=== PATIENT | male | born 1995 | race Caucasian/White ===

== ENCOUNTER 2022-12-31 12:50 | Outpatient (AMB) | payer OTHER, SELFPAY ==
--- NOTE | 2022-12-31 13:03 | A.OFFVIS_ITS ---
Intake Vital Signs 12/31/22 13:05 Height 5 ft 10 in Weight 282 lb BMI 40.5 BP 188/102 H Blood Pressure Location Lt radial Position Sitting Respiration 14 Pulse 104 H Pulse Source Pulse Oximeter Pulse Oximetry (%) 96 Oxygen Delivery Method Room Air Intake Visit Reasons: back pain Allergies Macrolide Antibiotics Allergy (Severe, Verified 12/31/22 13:08) Anaphylaxis Medication List - Last Reconciled 12/31/22 by Annalisa Valera, TOÑA amlodipine 5 mg PO DAILY cyclobenzaprine 20 mg PO BID ibuprofen 800 mg PO BID oxycodone 5 mg PO BID PRN pregabalin 300 mg PO BID HPI back pain HPI Details 27-year-old male presenting today for an evaluation of back pain. In 2018, the patient states that he was walking upstairs when he turned and pivoted on one foot with immediate onset pain in the lower back radiating down to his legs. 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 He subsequently underwent a spinal cord detethering surgery along with S1 and S2 laminectomies in 2018 [address] Altaf Becker at [facility]. No particular intervention was undertaken for his spinal disc herniations related sciatica. Since the surgery, he reports unresolved pain in the lower back that radiates around the sides and then down to the bilateral lower extremities. His right leg is more bothersome than his left. He also has numbness and tingling in bilateral feet. He states that his pain is constantly present while driving, lying down, standing, or climbing stairs. It is especially worse with walking. He endorses leaning on his shopping cart when he goes grocery shopping. He can walk one block before his pain is worsened of for him to sit down. MRI in 2022 showed moderate to severe spinal stenosis at L4-5 secondary to a diffuse disc bulge and a congenitally narrow spinal canal as well as a diffuse disc bulge at L5-S1 with moderate spinal stenosis. He underwent a caudal epidural steroid injection at [facility] pain management earlier this year, that resulted in acute worsening of his neuropathic pain symptoms without any relief whatsoever. He is taking oxycodone and cyclobenzaprine. He states that he is unable to swim due to leg cramps and inability to move his legs in the water in recent months, where as he was previously an excellent swimmer. He has also had a few falls in recent months. He subjectively feels his legs have weakened although he denies any loss of bowel or bladder control. He states that he has intermittent bladder issues since his surgery in 2018 but no accidents. He is currently on leave. He works for [employer]. His insurance changed recently when his company was taken over by another firm. He has been working on losing weight for the past few years through diet control with good success. His maximum weight was 410 lb and he is 280 lb currently. [facility] Medical History (Updated 12/31/22 @ 13:46 by Dmitry Rodriguez MD) ADHD Chronic back pain HTN (hypertension) Review of Systems Const All systems reviewed & are unremarkable except as noted in HPI and below Physical Exam Vital Signs: Last Vital Signs Pulse 104 H 12/31/22 13:05 Resp 14 12/31/22 13:05 BP 188/102 H 12/31/22 13:05 Pulse Ox 96 12/31/22 13:05 Oxygen Delivery Method Room Air 12/31/22 13:05 BMI result Body Mass Index 40.5 General: Appears afebrile. Alert and oriented. Mood and affect appropriate. Follows and participates in conversation appropriately. Respiratory effort is unlabored. Able to transition from sit to stand unassisted. Ambulates with bilaterally normal heel strike and toe off. Results Reviewed Results Reviewed: MR LUMBAR SPINE. Assessment & Plan Assessment & Plan (1) Spinal stenosis, lumbar region with neurogenic claudication: Code(s): M48.062 - Spinal stenosis, lumbar region with neurogenic claudication Plan 1. Encouraged the patient to continue his weight loss at home. ? 2. A referral was provided to Dr. Mack for further evaluation and discussion of surgical decompression for spinal stenosis at L4-5 and L5-S1. I explained to him that the goal of the surgery would be to restore strength to his lower extremities and eliminate symptoms of neurogenic claudication. If he has residual neuropathic symptoms of lumbosacral radiculopathy following lumbar decompression, we can revisit spinal cord stimulation at that point. Patient expressed understanding. I also asked him to bring a disc with his MRI images to his neurosurgical appointment. Scribed for Dr. Rodriguez by John Awad, neuropsychology medical consultant, on 12/31/2022. I, Dr. Rodriguez, have personally reviewed and agree with the information entered by the alisia bains. Orders: Referrals Neurosurgery Referral M48.062 - Spinal stenosis, lumbar region with neurogenic claudication Coding Level of Care Code New Pt Level 4 (12852) Diagnoses Spinal stenosis, lumbar region with neurogenic claudication M48.062
[2022-12-31 13:05] VITALS: BP 188/102; PULSE 104; RESP 14; O2SAT 96; BMI 40.5
== END 2022-12-31 14:11 | disposition home or self-care (01) ==
PROVIDERS: PCP Family Medicine; Visit Provider Internal Medicine
DX: M48.062 Spinal stenosis, lumbar region with neurogenic claudication (principal)
CPT/HCPCS: 99204

== ENCOUNTER → 2022-12-31 12:50 | Outpatient (BNVA) | payer OTHER, SELFPAY | PROVIDERS: PCP Family Medicine; Visit Provider Internal Medicine ==

== ENCOUNTER 2023-01-23 09:24 | Outpatient (AMB) | payer OTHER, SELFPAY ==
--- NOTE | 2023-01-23 09:52 | A.SPINEOV_ITS ---
Intake Intake Visit Reasons: low back pain Intake Note: Mr. Nolan is here today c/o low back and leg pain. MRI done @ [facility]/brought disc. Recreation Program Specialist Required: No Allergies Macrolide Antibiotics Allergy (Severe, Verified 12/31/22 13:08) Anaphylaxis Assessment & Plan Assessment & Plan (1) Spinal stenosis, lumbar region with neurogenic claudication: Code(s): M48.062 - Spinal stenosis, lumbar region with neurogenic claudication Plan: Dear colleague, Thank you for referring Niraj to our office today. He is a pleasant 27-year-old male with a chief complaint of low back and leg pain. He reports that in 2018 he was walking upstairs, turned and pivoted on one foot, and had immediate onset of low back pain radiating down his legs. He reports a history of S1-S2 laminectomy and spinal cord detethering surgery. He additionally states that he has a congenitally narrowed spinal cord. He reports that his not feel that surgery is very beneficial, he continues to have unresolved low back pain that radiates down his bilateral extremities worse in his right leg than his left. He he states that he is predominantly pain symptoms in his right leg originating in his low back and radiating around his lateral thigh over the top of his knee terminating midway down his tibialis. He states that he has predominantly numbness and tingling symptoms in his left leg beginning in his low back radiating down his lateral thigh over the top of his left knee tip te rminating in his left foot near his toes. He states that standing up straight and walking for extended periods of time exacerbate his low back pain, and reports that sitting down , lying down, relieves his low back. He has tried physical therapy, home health care provider, cortisone injections, narcotic pain medications, muscle relaxers, and [id number] solutions without significant relief. PMH: High blood pressure Social hx: Patient does not smoke, disclosed no substance use. Medications: Cyclobenzaprine, Lyrica, amlodipine, ibuprofen, oxycodone. Allergies: NKDA Physical exam: 4/5 strength in bilateral lower extremities (pain limiting weakness). Sensation and light touch equal and intact in bilateral lower extremities. Reflexes intact in bilateral lower extremities. (-) Straight leg raise bilaterally. (-) Babinski. No clonus. Increased pain elicited to spine extension. No pain with spine flexion. Antalgic gait. Imaging review: MRI from 2018 and [address] Mack. It seems that the herniated disc at L4/5 has became significantly larger since 2018, causing severe impingement at L4/L5. L5/S1 herniation seems to remain relatively the same sizes 2018, in only shows [id number] protrusion. Impression: The patient is a 27-year-old male with a chief complaint of low back pain, right leg pain, and left leg numbness and tingling. His symptoms are in a classic L4/5 dermatomal distribution, originating in his low back wrapping around his lateral thigh crossing over his knee to the anterior tibialis with intermittent top of the foot involvement. He additionally has symptoms indicative of severe spinal stenosis. He reports that for the last few months he is essentially laid in bed because the pain is so bad that he cannot tolerate more than mild movement throughout the day. He is on medical leave from work. He has no relief of pain with muscle relaxers narcotic pain medications in timc-klz-[id number] pain solutions. He is had multiple other therapies for this issue including physical therapy home health care provider cortisone injections and previous spinal surgery (2018). At this time we believe he would most benefit from a L4/5 lumbar decompression with discectomy (bilateral approach). We additionally discussed some concern for the potential for calcification over the disc, therefore the patient will be sent for a CT scan of the lumbar spine. He is tentatively scheduled for surgery on March 07. Thank you for allowing us to care for your patient. The total time spent with this visit with this patient was[] minutes reviewing history, physical exam, [] imaging review, and implementation of treatment plan or further diagnostic testing Golden Mack MD,PhD [facility] Orders: Orders CT lumbar spine wo IV con Today M48.062 - Spinal stenosis, lumbar region with neurogenic claudication Coding Level of Care Code New Pt Level 5 (34045) Diagnoses Spinal stenosis, lumbar region with neurogenic claudication M48.062 Time Spent (min) 65
--- NOTE | 2023-01-23 11:25 | HO.SPINEOV ---
Intake Intake Visit Reasons: low back pain Allergies Macrolide Antibiotics Allergy (Severe, Verified 12/31/22 13:08) Anaphylaxis Assessment & Plan Assessment & Plan (1) Spinal stenosis, lumbar region with neurogenic claudication: Code(s): M48.062 - Spinal stenosis, lumbar region with neurogenic claudication Plan: Dear colleague, Thank you for referring Niraj to our office today. He is a pleasant 27-year-old male with a chief complaint of low back and leg pain. He reports that in 2018 he was walking upstairs, turned and pivoted on one foot, and had immediate onset of low back pain radiating down his legs. He reports a history of S1-S2 laminectomy and spinal cord detethering surgery. He additionally states that he has a congenitally narrowed spinal cord. He reports that his not feel that surgery is very beneficial, he continues to have unresolved low back pain that radiates down his bilateral extremities worse in his right leg than his left. He he states that he is predominantly pain symptoms in his right leg originating in his low back and radiating around his lateral thigh over the top of his knee terminating midway down his tibialis. He states that he has predominantly numbness and tingling symptoms in his left leg beginning in his low back radiating down his lateral thigh over the top of his left knee tip terminating in his left foot near his toes. He states that standing up straight and walking for extended periods of time exacerbate his low back pain, and reports that sitting down , lying down, relieves his low back. PMH: High blood pressure Social hx: Patient does not smoke, disclosed no substance use. Medications: Cyclobenzaprine, Lyrica, amlodipine, ibuprofen, oxycodone. Allergies: NKDA Physical exam: 4/5 strength in bilateral lower extremities (pain limiting weakness). Sensation and light touch equal and intact in bilateral lower extremities. Reflexes intact in bilateral lower extremites. (-) Straight leg raise bilaterally. (-) Babinski. No clonus. Increased pain elicited to spine extension. No pain with spine flexion. Antalgic gait. Imaging review: MRI from 2017 and [address] Mack. It seems that the herniated disc at L4/5 has became significantly larger since 2018, causing severe stenosis and severe nerve root impingement at L4/L5. L5/S1 herniation seems to remain relatively the same sizes 2018, in only shows [id number] protrusion. Impression: The patient is a 27-year-old male with a chief complaint of low back pain right leg pain, alongside left leg numbness and tingling. His symptoms are in a classic L4/5 dermatomal distribution, originating in his low back wrapping around his lateral thigh crossing over his knee to the anterior tibialis with intermittent top of the foot involvement. He additionally has symptoms indicative of severe spinal stenosis. He reports that for the last few months he is essentially laid in bed because the pain is so bad that he cannot tolerate movement throughout the day. He is on medical leave from work. He has no relief of pain with muscle relaxers narcotic pain medications in aynw-gcc-timyxzk pain solutions. He is had multiple other therapies for this issue including physical therapy managed care provider cortisone injections and previous spinal surgery. At this time we believe he would most benefit from a L4/5 lumbar decompression with diskectomy (bilateral approach). We additionally discussed some concern for the potential for calcification over the disc, therefore the patient will be sent for a CT scan of the lumbar spine. He is tentatively scheduled for surgery on March 07. Thank you for allowing us to care for your patient. The total time spent with this visit with this patient was 65 minutes reviewing history, physical exam, MRI imaging review, and implementation of treatment plan or further diagnostic testing Golden Mack MD,PhD [facility] Orders: Orders CT lumbar spine wo IV con Today M48.062 - Spinal stenosis, lumbar region with neurogenic claudication Coding Level of Care Code New Pt Level 5 (82834) Diagnoses Spinal stenosis, lumbar region with neurogenic claudication M48.062
== END 2023-01-23 10:55 | disposition home or self-care (01) ==
PROVIDERS: PCP Family Medicine; Referring Provider Internal Medicine; Visit Provider Physician Assistant
DX: M48.062 Spinal stenosis, lumbar region with neurogenic claudication (principal)
CPT/HCPCS: 99205

== ENCOUNTER → 2023-01-23 09:24 | Outpatient (BNVA) | payer OTHER, SELFPAY | PROVIDERS: PCP Family Medicine; Referring Provider Internal Medicine; Visit Provider Physician Assistant ==

== ENCOUNTER 2023-03-07 09:42 | Day surgery (SDC) | payer OTHER, SELFPAY ==
[2023-02-20 15:08] VITALS: BMI 54.5
--- NOTE | 2023-02-21 13:29 | HO.ANESPROP2 ---
Documented by User: Kiera Sánchez NP 03/04/23 14:00 HPI - Anesthesia Eval Consult details Narrative: 27yo M for Bilateral L4-5 Laminotomy/Discectomy, 03/07/23 PCP [facility] Active Problems Active Problems: All Active Problems (Updated 02/20/23 @ 15:05 by Isabella Burk RN) Spinal stenosis, lumbar region with neurogenic claudication (Acute) Past Medical History Medical History Mild heartburn Anxiety Bilateral leg numbness Loud snoring ADHD HTN (hypertension) Chronic back pain Surgical History Surgical History Hx of laminectomy History of tonsillectomy and adenoidectomy Social History Social History Household Members: Family Housing: House Are you a primary critical care technician to a significant other at home: No Do you presently have visiting nurse or other home services: No Patient Tobacco Use Status: Never used Tobacco Use of substances other than those prescribed or required for medical reasons: Yes Substance Use Type: Marijuana Substance Use Frequency: Daily Have you been hit, kicked, punched, or otherwise hurt by someone within the past year? If so, by whom?: No Are you DNR?: No Advance Directives: No Advance Directives Information Provided: Yes Advance Directives on File: No Nutrition Risks: No Nutritional Risk Poor oral hygiene: No Meds Allergies Allergy/AdvReac Type Severity Reaction Status Date / Time Macrolide Antibiotics Allergy Severe Anaphylaxis Verified 02/20/23 15:08 Home Medications Medication Instructions Recorded Confirmed Last Taken Type amlodipine 5 mg tablet 5 mg PO DAILY 12/31/22 03/07/23 02/28/23 History cyclobenzaprine 10 mg tablet 20 mg PO BID PRN Pain 12/31/22 02/20/23 03/05/23 History ibuprofen 800 mg tablet 800 mg PO BID PRN Pain 12/31/22 02/20/23 02/26/23 History oxycodone 5 mg capsule 5 mg PO BID PRN Pain 12/31/22 02/20/23 03/06/23 History pregabalin 300 mg capsule 300 mg PO BID 12/31/22 02/20/23 03/06/23 History Exam Exam Date and Time: February 21, 2023 1329 Height,Weight and Vital Signs: Height 5 ft 10 in Weight 172.365 kg Pertinent Lab Results Pertinent Lab Results: CBC from outside facility 02/15/23 WNL Narrative Narrative: EKG 02/2023 SR @ [address] depression (nondiagnostic for this age) Assessment and Plan Assessment Anesthesia Assessment: Chart Reviewed Documented by User: Dmitry Rodriguez MD 03/07/23 14:52 PMFSH Past Medical History Medical History Mild heartburn Anxiety Bilateral leg numbness Loud snoring ADHD HTN (hypertension) Chronic back pain Family History Family history of problems with anesthesia: No Surgical History Surgical History Hx of laminectomy History of tonsillectomy and adenoidectomy History of Problems with Anesthesia: No Social History Social History Household Members: Family Housing: House Are you a primary critical care technician to a significant other at home: No Do you presently have visiting nurse or other home services: No Patient Tobacco Use Status: Never used Tobacco Use of substances other than those prescribed or required for medical reasons: Yes Substance Use Type: Marijuana Substance Use Frequency: Daily Have you been hit, kicked, punched, or otherwise hurt by someone within the past year? If so, by whom?: No Are you DNR?: No Advance Directives: No Advance Directives Information Provided: Yes Advance Directives on File: No Nutrition Risks: No Nutritional Risk Poor oral hygiene: No Meds Allergies Allergy/AdvReac Type Severity Reaction Status Date / Time Macrolide Antibiotics Allergy Severe Anaphylaxis Verified 02/20/23 15:08 Home Medications Medication Instructions Recorded Confirmed Last Taken Type amlodipine 5 mg tablet 5 mg PO DAILY 12/31/22 03/07/23 02/28/23 History cyclobenzaprine 10 mg tablet 20 mg PO BID PRN Pain 12/31/22 02/20/23 03/05/23 History ibuprofen 800 mg tablet 800 mg PO BID PRN Pain 12/31/22 02/20/23 02/26/23 History oxycodone 5 mg capsule 5 mg PO BID PRN Pain 12/31/22 02/20/23 03/06/23 History pregabalin 300 mg capsule 300 mg PO BID 12/31/22 02/20/23 03/06/23 History Exam Airway Mallampati Class: II TM Dist: >3cm Neck ROM: Full Loose/Missing/Broken Teeth: No Assessment and Plan Assessment Anesthesia Assessment: Anesthesia Plan Discussed Final Anesthetic Review Family History of Problems with Anesthesia: No History of Problems with Anesthesia: No ASA Class: III Final Preanesthetic Review: No Changes in Pt Med Stat, Meds/Allgs Chart Reviewed, Consent Obtained/Reviewed and Anes Risks/Benef Reviewed Patient Risk: High Procedure Risk: Intermediate Anesthetic Plan Anesthetic Plan: GA Disposition: Standard PACU
[2023-03-07] VITALS (10 sets, daily range): BP systolic 149–167; BP diastolic 60–103; PULSE 90–100; RESP 18–22; TEMP 36.1–36.6; O2SAT 95–100
--- NOTE | ~2023-03-07 | FL_ITS ---
EXAMINATION: XR FLUOROSCOPY WITH IMAGES CLINICAL INFORMATION: L4-L5 laminotomy/discectomy, bilateral. COMPARISON: None available. TECHNIQUE: Fluoroscopy Supervised By: Dr. Gabe Mack. Fluoroscopy Time: 0.0 minutes. Cumulative Dose: 5.79 mGy. DAP: 0.949 Gycm2. Images: 1. FINDINGS: Image demonstrates surgical instruments posterior to the L4-L5 disc space. FL/FL guidance in OR IMPRESSION: Fluoroscopy guidance for lumbar spine surgery
--- NOTE | 2023-03-07 07:01 | MHC.SHP ---
Pre-Procedural Eval Section A Date of Service: 03/07/23 Section B Chief Complaint: Spinal stenosis, lumbar region with neurogenic Allergies: Allergies Allergy/AdvReac Type Severity Reaction Status Date / Time Macrolide Antibiotics Allergy Severe Anaphylaxis Verified 02/20/23 15:08 Review of Systems Sugical H&P ROS: Negative: Constitution, Cardiovascular, Respiratory, Neurological, Psychiatric, Hem-Onc, Allergic/Immunologic, Gastrointestinal, Genitourinary, Musculoskeletal, Integumentary, Endocrine and Eyes/Ears/Nose/Throat Exam Surgical H&P Exam: Not Evaluated: HEENT, Not Evaluated: Heart, Not Evaluated: Lungs, Not Evaluated: Extremities, Not Evaluated: Abdomen, Not Evaluated: Skin and Not Evaluated: Neurological Plan Diagnosis/Plan: Unchanged I have reviewed the history and physical and performed a pertinent physical examination on my patient. No changes have occurred unless specified. Plan remains the same, L4-5 laminotomy lumbar decompression Time Spent With Patient Time: Total time managing care of this patient today __10__ minutes.
[2023-03-07] MEDS: Gabapentin 300 MG CAPSULE PO (10:30)
[2023-03-07] MEDS: methocarbamoL 750 MG TABLET PO (10:30)
[2023-03-07] MEDS: Lactated Ringers 1,000 ML 100 ML IVCONT (11:01)
--- NOTE | 2023-03-07 15:59 | W.PM.OPN ---
Operative Note Operative Note Date of Service: 03/07/23 Narrative: Preoperative diagnosis: bilaterallumbar radiculopathy due to disc herniation Postoperative diagnosis: Same Procedure: L4-5 lumbar microdiskectomy with microscope Surgeon: Gabe Mack MD, PhD Metalizing Machine Operator: Jake Hill this 28-year-old male is suffering from bilateral lumbar radiculopathy. He went to a [facility] where a day a can or a large L4-5 disc herniation but in stat decided to treat his tethered cord. His symptoms were unchanged. 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 The patient is 450 lb with BMI 54.5, which obviously makes the surgery difficult. Despite the morbid obesity I offered him a lumbar microdiskectomy L4 5. The procedure complications were explained. The patient was consented. The patient was brought to the operating room and endotracheally intubated. The patient was turned in a prone position on the Mahesh spine table. Prepping and draping was done followed by time-out. A mid lumbar incision was made followed by release of the paravertebral muscles on the left side to expose the L4-5 interspace. An intraoperative x-rays obtained to confirm the correct level. The microscope was brought in. A L4 laminotomy was done followed by opening of the flavum ligament. it was decided to do a partial facetectomy to get better access to the disc space. A large partially calcified disc herniation was encountered that post the L5 nerve root posteriorly. I used a downward curved curette to push a de calcified part of the disc into the disc space. A 2. Kerrison was used to remove more calcified disc. Now had an entrance to the disc space. With straight and curved pituitaries I was able to retrieve large fragment of herniated disc from under the thecal sac. Eventually this led to a good decompression of the left L5 nerve root. . The disc space was inspected and any residual disc fragments were removed. I could go to the contralateral side with a long nerve hook and I did not palpate a significant bulging. Therefore I did decide not to open the contralateral side. this patient may need a transforaminal lumbar body fusion, right-sided approach if his radicular symptoms are not resolved. Hemostasis was done. The microscope was removed. Marcaine was injected intramuscularly.The incision was closed in two layers. Steri-Strips used to approximate seizure. An op-site were taken there was used to cover the incision. All sponge and needle counts were correct. Patient was extubated and transported in stable condition to recovery room. This surgery took approximately 45 minutes longer than usual due to the morbid obesity, which interfered with the exposure and diskectomy. this procedure was done with the aid of a physician high school assistant principal who performed the initial exposure until the microscope was brought in and performed the closure of the incision. Anesthesia: General Blood loss: 20 mL Complications: None Specimen: None Surgical time: 90 minutes Disposition: Discharge home
--- NOTE | 2023-03-07 16:09 | PM.DS ---
DS: Providers Provider Date of Service: 03/07/23 Date of discharge: 03/07/23 Primary care physician: Lara Benjamin MD Admitting clinician: Gabe Mack DS: Diagnosis Discharge Diagnosis (1) Spinal stenosis, lumbar region with neurogenic claudication: Status: Acute DS: Summary Time Spent with Patient Time attestation: Total time managing care of this patient today ____ minutes. Discharge coordination time: Less than 30 minutes Quality: Safe Use of Opioids Does Pt have an Active Cancer Diagnosis on the Problem List?: No Quality: Stroke Does the patient have a stroke diagnosis?: No Physical Exam Vital Signs: Vital Signs: Last Vital Signs Temp 97.9 F 03/07/23 10:46 Pulse 100 03/07/23 10:46 Resp 18 03/07/23 10:46 BP 154/98 H 03/07/23 10:46 Pulse Ox 96 03/07/23 10:46 O2 Del Method Room Air 03/07/23 10:46 BMI result Body Mass Index 54.5 DS: Data Data Completed and Pending Labs on day of discharge: Laboratory Results - last 24 hr 03/07/23 11:18 Blood Type B Positive Antibody Screen NEGATIVE Discharge Plan Discharge Patient Disposition: Home, Self-Care Referrals: Lara Benjamin MD [Primary Care Provider] - 1 Week Discharge Medications: New oxycodone 5 mg tablet 5 mg PO Q4H PRN (Reason: pain) Qty: 30 0RF Rx Instructions: Partial Fill upon patient request. docusate sodium [Colace] 100 mg capsule 100 mg PO BID Qty: 20 0RF Continued pregabalin 300 mg capsule 300 mg PO BID cyclobenzaprine 10 mg tablet 20 mg PO BID PRN (Reason: Pain) amlodipine 5 mg tablet 5 mg PO DAILY ibuprofen 800 mg tablet 800 mg PO BID PRN (Reason: Pain) Discontinued oxycodone 5 mg capsule 5 mg PO BID PRN (Reason: Pain) Discharge Orders: Discharge Order (Routine); Ordered 03/07/23 Ordered By: Jake Fuentes Diet: Advance to usual diet Activity on Discharge: As tolerated Activity Restrictions/Additional Instructions: After your spinal surgery we ask you to observe the following restrictions/guidelines: Activity: It is normal to feel some discomfort as you increase your activity, but that will improve with time. We ask you avoid heavy lifting or acitivities that cause pain. As a general rule, 8lbs is a safe limit for lifting right after surgery. Walk as much as you feel comfortable but not to exhaustion. You will feel extra tired the first few days after surgery. Stay well hydrated. It is OK to walk up and down stairs You may return to driving when you are off narcotics (such as vicodin, oxycodone, dilaudid, etc), and you are back to normal functional capacity. If you have any concerns please check with office before driving. Return to work is specific to each patient and each surgery, so please speak with your doctor/PA at first follow up. Please bring paperwork such as FMLA at that time if you need it filled out. Medications: For optimum pain control, it is best to start with a combination of 500 mg of Tylenol every 4 hours with 600 mg of Motrin every 8 hours, and use narcotics as needed in between for breakthrough pain. We will give you a short supply of narcotics after surgery (usually one weeks worth). If you need more please call the office but do not use more than prescribed. You will need to give our office 48 hours notice if you need narcotics refilled and we do not fill narcotics on weekends or evenings. If you are on a narcotic, it is a good idea to take a stool softener such as colace or senna to avoid constipation If you take blood thinner such as aspirin, Plavix, Coumadin, Effient, Eliquis etc for conditions such as Afib, DVT, Pulmonary embolus, coronary disease, stents etc please speak with your surgeon about specific details as to when you can resume these medications. You can resume NSAIDs on post op day 1 (eg: Motrin, Naproxen, etc). Follow up: Please call the office, , after surgery to arrange a 3 week follow up for wound check. Wound Care: You may remove your dressing on the first day after surgery. You may leave open to air. Please do not remove the steri strips underneath. they will fall off on their own in one week. IT IS NORMAL FOR THE WOUND TO OOZE OR BE BLOODY FOR A FEW DAYS AFTER SURGERY. IF THIS HAPPENS JUST PLACE NEW DRESSING OVER IT TO AVOID STAINING CLOTHES. You may shower on post op day # 1 We ask that you do not let the water soak the wound. If it does get wet, just towel dry lightly. Please do not scrub your incision or place any type of chemical/ointment on the wound. No tub baths, pools or jacuzzis for one month. If you have any leaking or redness from your wound, or fevers, please call office
[2023-03-07] MEDS: oxyCODONE HCl Immed Release 5 MG TABLET 10 MG PO (16:41)
[2023-03-07] MEDS: HYDROmorphone HCl 0.5 MG/0.5 ML SYRINGE IVPUSH (16:52)
--- NOTE | 2023-03-07 17:47 | PC.NURSE ---
PATIENT ATTEMPT FILL POST OP PRESCRIPTIONS FOR PAIN MEDICATION. [facility] CLOSED AT 1730. MESSAGE SENT TO DR. JOEL AND PA, DALLIN HASSAN, TO IDENTIFY PRESCRIPTION NEEDS BE RESENT TO [facility].
--- NOTE | 2023-03-07 18:05 | PM.DS ---
DS: Providers Provider Date of Service: 03/07/23 Primary care physician: Lara Benjamin MD DS: Diagnosis Discharge Diagnosis (1) Spinal stenosis, lumbar region with neurogenic claudication: Status: Acute DS: Summary Time Spent with Patient Time attestation: Total time managing care of this patient today ____ minutes. Discharge coordination time: Less than 30 minutes Quality: Safe Use of Opioids Does Pt have an Active Cancer Diagnosis on the Problem List?: No Quality: Stroke Does the patient have a stroke diagnosis?: No Physical Exam Vital Signs: Vital Signs: Last Vital Signs Temp 97 F 03/07/23 17:25 Pulse 94 03/07/23 17:25 Resp 20 03/07/23 17:25 BP 165/98 H 03/07/23 17:25 Pulse Ox 96 03/07/23 17:25 O2 Del Method Room Air 03/07/23 17:25 O2 Flow Rate 6 03/07/23 16:59 BMI result Body Mass Index 54.5 DS: Data Data Completed and Pending Labs on day of discharge: Laboratory Results - last 24 hr 03/07/23 11:18 Blood Type B Positive Antibody Screen NEGATIVE Discharge Plan Discharge Patient Disposition: Home, Self-Care Referrals: Lara Benjamin MD [Primary Care Provider] - 1 Week Discharge Medications: New docusate sodium [Colace] 100 mg capsule 100 mg PO BID Qty: 20 0RF oxycodone 5 mg tablet 5 mg PO Q4H PRN (Reason: pain ) Qty: 20 0RF Rx Instructions: Partial Fill upon patient request. Continued pregabalin 300 mg capsule 300 mg PO BID cyclobenzaprine 10 mg tablet 20 mg PO BID PRN (Reason: Pain) amlodipine 5 mg tablet 5 mg PO DAILY ibuprofen 800 mg tablet 800 mg PO BID PRN (Reason: Pain) Discontinued oxycodone 5 mg capsule 5 mg PO BID PRN (Reason: Pain) Discharge Orders: Discharge Order (Routine); Ordered 03/07/23 Ordered By: Jake Fuentes Diet: Advance to usual diet Activity on Discharge: As tolerated Activity Restrictions/Additional Instructions: After your spinal surgery we ask you to observe the following restrictions/guidelines: Activity: It is normal to feel some discomfort as you increase your activity, but that will improve with time. We ask you avoid heavy lifting or acitivities that cause pain. As a general rule, 8lbs is a safe limit for lifting right after surgery. Walk as much as you feel comfortable but not to exhaustion. You will feel extra tired the first few days after surgery. Stay well hydrated. It is OK to walk up and down stairs You may return to driving when you are off narcotics (such as vicodin, oxycodone, dilaudid, etc), and you are back to normal functional capacity. If you have any concerns please check with office before driving. Return to work is specific to each patient and each surgery, so please speak with your doctor/PA at first follow up. Please bring paperwork such as FMLA at that time if you need it filled out. Medications: For optimum pain control, it is best to start with a combination of 500 mg of Tylenol every 4 hours with 600 mg of Motrin every 8 hours, and use narcotics as needed in between for breakthrough pain. We will give you a short supply of narcotics after surgery (usually one weeks worth). If you need more please call the office but do not use more than prescribed. You will need to give our office 48 hours notice if you need narcotics refilled and we do not fill narcotics on weekends or evenings. If you are on a narcotic, it is a good idea to take a stool softener such as colace or senna to avoid constipation If you take blood thinner such as aspirin, Plavix, Coumadin, Effient, Eliquis etc for conditions such as Afib, DVT, Pulmonary embolus, coronary disease, stents etc please speak with your surgeon about specific details as to when you can resume these medications. You can resume NSAIDs on post op day 1 (eg: Motrin, Naproxen, etc). Follow up: Please call the office, , after surgery to arrange a 3 week follow up for wound check. Wound Care: You may remove your dressing on the first day after surgery. You may leave open to air. Please do not remove the steri strips underneath. they will fall off on their own in one week. IT IS NORMAL FOR THE WOUND TO OOZE OR BE BLOODY FOR A FEW DAYS AFTER SURGERY. IF THIS HAPPENS JUST PLACE NEW DRESSING OVER IT TO AVOID STAINING CLOTHES. You may shower on post op day # 1 We ask that you do not let the water soak the wound. If it does get wet, just towel dry lightly. Please do not scrub your incision or place any type of chemical/ointment on the wound. No tub baths, pools or jacuzzis for one month. If you have any leaking or redness from your wound, or fevers, please call office Discharge Date/Time: 03/07/23 17:42
--- NOTE | 2023-03-07 18:37 | PC.NURSE ---
1800 MESSAGE FROM DALLIN HASSAN SPINE PA, WHO INDICATED WILL TAKE CARE OF PRESCRIPTION BEING SENT TO [facility]
== END 2023-03-07 17:42 | disposition home or self-care (01) ==
PROVIDERS: PCP Family Medicine; Visit Provider Neurological Surgery
PROC: (CPT 63030; principal; 2023-03-07 11:20)
DX: M48.062 Spinal stenosis, lumbar region with neurogenic claudication (principal); G89.29 Other chronic pain; M51.16 Intervertebral disc disorders with radiculopathy, lumbar region; M54.50 Low back pain, unspecified; M79.605 Pain in left leg; M79.604 Pain in right leg; R20.0 Anesthesia of skin; R20.2 Paresthesia of skin; I10 Essential (primary) hypertension; Z98.890 Other specified postprocedural states; Z79.1 Long term (current) use of non-steroidal anti-inflammatories (NSAID); Z79.899 Other long term (current) drug therapy; F12.90 Cannabis use, unspecified, uncomplicated
CPT/HCPCS: 63030; 86850; 86900; 86901; J0131; J0330; J0690; J1100; J1170; J1885; J2250; J2405; J3010

== ENCOUNTER → 2023-03-07 09:42 | Outpatient (BNV) | payer OTHER, SELFPAY | PROVIDERS: PCP Family Medicine; Visit Provider Neurological Surgery | DX: M48.062 Spinal stenosis, lumbar region with neurogenic claudication (principal) | CPT/HCPCS: 63030; 99499 ==

== ENCOUNTER 2023-03-27 10:54 | Outpatient (AMB) | payer OTHER, SELFPAY ==
--- NOTE | 2023-03-27 11:24 | HO.SPINEOV ---
Intake Intake Visit Reasons: 1st post op Intake Note: Mr. Nolan is here today for his 1st post-op visit. Control Systems Specialist Required: No Allergies Macrolide Antibiotics Allergy (Severe, Verified 02/20/23 15:08) Anaphylaxis Coding Level of Care Code Global (21319)
== END 2023-03-27 11:26 | disposition home or self-care (01) ==
PROVIDERS: PCP Family Medicine; Visit Provider Physician Assistant
DX: Z48.89 Encounter for other specified surgical aftercare (principal)
CPT/HCPCS: 99024

== ENCOUNTER → 2023-03-27 10:54 | Outpatient (BNVA) | payer OTHER, SELFPAY | PROVIDERS: PCP Family Medicine; Visit Provider Physician Assistant ==

== ENCOUNTER 2023-05-08 12:51 | Outpatient (AMB) | payer OTHER, SELFPAY ==
--- NOTE | 2023-05-08 12:58 | HO.SPINEOV ---
Intake Intake Visit Reasons: 2nd post op Intake Note: Mr. Nolan is here today for his 2nd post-op visit. S/p L4-5 MLD. Allergies Macrolide Antibiotics Allergy (Severe, Verified 02/20/23 15:08) Anaphylaxis Assessment & Plan Assessment & Plan (1) S/P spinal fusion: Code(s): Z98.1 - Arthrodesis status Plan Procedure: L4-5 lumbar microdiskectomy Niraj comes in today for his 2nd postoperative visit. He reports he is very satisfied with the surgery and feels much better than he did pre-operatively. He continues to heal well, and reports that he has now been up and engaging in meaningful activities outside of his home, including basketball and walking. He states that he has been playing basketball on average for with 1-2 hours 2-3 times per week. This is remarkable given that he was largely bed-bound prior to surgery and was unable to engage in even minor activity such as walking and ambulating around his home without pain. He does disclose some continued tenderness in his low back after days where he goes for walks or plays basketball. He asked for any recommendations he may have for muscle spasm/tenderness in his low back after activity. We also extensively discussed his ability to return to the gym, which he was advised to do his own he does not engage in weightlifting. He expressed gratitude for surgery, and reports new found vigor to engage in healthy lifestyles again in begin losing the weight which he put on due to his previous injury and pain. Full strength 5/5 UE / LE. Mobility is intact. Sensation grossly intact. Patient is able to ambulate well, rises from a seated position without difficulty. Incision sites are closed, well healing, with no signs of drainage. Niraj may follow-up on his as needed basis going forward. He was provided with a short 1 time prescription of methocarbamol, and advised to follow-up with his primary care provider for further continued prescriptions. Golden Mack MD,PhD [facility] Medications: New methocarbamol 750 mg PO Q12H PRN 30 tabs 0RF post-operative low back tenderness / spasms Coding Level of Care Code Global (41700) Diagnoses S/P spinal fusion Z98.1
== END 2023-05-08 13:23 | disposition home or self-care (01) ==
PROVIDERS: PCP Family Medicine; Visit Provider Physician Assistant
DX: Z98.1 Arthrodesis status (principal)
CPT/HCPCS: 99024

== ENCOUNTER → 2023-05-08 12:51 | Outpatient (BNVA) | payer OTHER, SELFPAY | PROVIDERS: PCP Family Medicine; Visit Provider Physician Assistant ==